=== PATIENT | female | born 1990 | race Caucasian/White ===

== ENCOUNTER 2016-11-09 17:18 | Emergency (ER) | payer OTHER ==
[2016-11-09] MEDS ORDERED: METOCLOPRAMIDE HCL 5 MG/ML 2ML VIAL ONE (17:56)
[2016-11-09] MEDS ORDERED: DIPHENHYDRAMINE HCL 50 MG/1 ML VIAL ONE (17:56)
[2016-11-09] MEDS ORDERED: SODIUM CHLORIDE 0.9% 1,000 ML ONE ×2 (17:56→17:58)
[2016-11-09 18:08] LABS: ABSOLUTE NEUTROPHIL COUNT 6.9 K/mm3 (1.8-7.7); BASO % 0.2 % (0.2-1.0); EOS # 0.2 (0.0-0.5); EOS % 1.5 % (0.9-2.9); HEMATOCRIT 38.4 % (37.0-47.0); HEMOGLOBIN 12.8 gm/l (12.0-16.0); IMM NEUT% 0.3 % (0-1); LYMPH # 2.3 (1.0-4.8); LYMPH % 23.2 % (15-45); MEAN CELL VOLUME 90.6 fl (81.0-99.0); MEAN CORPUSCULAR HEMOGLOBIN 30.2 pg (27.0-31.0); MEAN CORPUSCULAR HGB CONC 33.3 g/dl (33.0-37.0); MEAN PLATELET VOLUME 9.9 fl (7.4-10.4); MONO # 0.6 (0.0-0.8); MONO % 5.6 % (4-12); NEUT % 69.2 % (43-75); PLATELET COUNT 248 K/mm3 (130-400); RED CELL DISTRIBUTION WIDTH 12.5 % (11.5-14.5)
[2016-11-09 18:30] LABS: ALB/GLOB RATIO 1.6 (>1.0); ALBUMIN 4.6 gm/dL (3.5-5.7); CALCIUM 9.5 mg/dL (8.6-10.3)
== END 2016-11-09 19:55 | disposition home or self-care (01) ==
LOC: ED 17:18
DX: R51 Headache (principal); R53.1 Weakness; R11.10 Vomiting, unspecified
CPT/HCPCS: 84703; 85025; 80053; 83735; 84443; 96375; 99283 ×2; 96374; 96361 ×2; J1200; J2765; J7030 ×2